=== PATIENT | male | born 1935 | race Caucasian/White ===

== ENCOUNTER → 2017-10-17 10:58 | Outpatient (CLI) | payer MEDICARE, BC, SELFPAY ==
[2017-10-17 14:09] LABS: Absolute Lymphocyte Count 1.61 X10^3/ul (0.83-4.51); Absolute Neutrophil Count 4.4 X10^3/uL (2.0-7.7); Basophil# 0.04 X10^3/uL; Basophil% 0.5 % (0-1); Eosinophil# 0.57 X10^3/uL; Eosinophils% 7.6 % (0-5); Hematocrit 43.5 % (40-54); Hemoglobin 14.4 g/dl (13.0-16.5); Lymphocyte # 1.61 X10^3/ul (4.0); Lymphocyte % 21.6 % (19-41); Mean Corp Hgb Conc 33.1 g/gl (32-36); Mean Corpuscular Hgb 30.4 pg (27.0-32.0); Mean Corpuscular Volume 91.8 fL (80-94); Mean Platelet Vol. 10.1 fl (6.2-12.0); Monocyte# 0.86 X10^3/uL; Monocyte% 11.5 % (0-10); Neutrophil # 4.36 X10^3/uL (2.7-7.7); Neutrophil % 58.5 % (47-70); Platelet Count 186 K/mm3 (150-450); RBC Distribution Width CV 15.5 % (11.6-14.6); RBC Distribution Width SD 50.7 fl (35.1-43.9); Red Blood Count 4.74 M/mm3 (4.6-6.2); White Blood Count 7.5 K/mm3 (4.4-11.0)
[2017-10-17 14:10] LABS: POSITIVE COUNT NO; POSITIVE DIFFERENTIAL NO; POSITIVE MORPHOLOGY NO
[2017-10-17 14:21] LABS: Anion Gap 9 (5-15); BUN 25 mg/dL (7-18); BUN/Creat Ratio 19.2 RATIO (10-20); Calcium,Total 9.1 mg/dL (8.5-10.1); Chloride 109 mmol/L (98-107); Cholesterol 107 mg/dL (200); EST Glomerular Filtration Rate 56 mL/min (>60); Est Glom Filt Rate - Afr Amer 68 mL/min (>60); Glucose 78 mg/dL (74-106); High Density Lipoprotein 53 mg/dL; Potassium 3.8 mmol/L (3.5-5.1); Sodium Level 146 mmol/L (136-145); Triglycerides 46 mg/dL; Very Low Density Lipoprotein 9 mg/dL (5-40)
== END ==
PROVIDERS: Family Provider Family Medicine; PCP Family Medicine; Visit Provider Family Medicine
DX: I10 Essential (primary) hypertension (principal); I48.91 Unspecified atrial fibrillation; E78.00 Pure hypercholesterolemia, unspecified
CPT/HCPCS: 80048; 80061; 85025

== ENCOUNTER → 2018-03-29 10:00 | Outpatient (CLI) | payer MEDICARE, BC, SELFPAY ==
[2018-03-29 12:06] LABS: Absolute Neutrophil Count 4.2 X10^3/uL (2.0-7.7); Basophil# 0.04 X10^3/uL; Basophil% 0.6 % (0-1); Eosinophil# 0.46 X10^3/uL; Eosinophils% 6.6 % (0-5); Hemoglobin 13.6 g/dl (13.0-16.5); Lymphocyte % 20.2 % (19-41); Mean Corp Hgb Conc 33.2 g/gl (32-36); Mean Corpuscular Hgb 30.2 pg (27.0-32.0); Mean Corpuscular Volume 91.1 fL (80-94); Monocyte# 0.83 X10^3/uL; Neutrophil # 4.18 X10^3/uL (2.7-7.7); Neutrophil % 60.3 % (47-70); Platelet Count 172 K/mm3 (150-450); RBC Distribution Width CV 15.4 % (11.6-14.6); RBC Distribution Width SD 50.3 fl (35.1-43.9); White Blood Count 6.9 K/mm3 (4.4-11.0)
[2018-03-29 12:12] LABS: POSITIVE COUNT NO; POSITIVE DIFFERENTIAL NO; POSITIVE MORPHOLOGY NO
[2018-03-29 12:32] LABS: ALB/GLOB Ratio 1.2 RATIO (0.9-2.4); AST(SGOT) 26 U/L (15-37); Alanine Aminotransfer ALT/SGPT 35 U/L (16-61); Albumin, Serum 3.3 g/dL (3.2-5.0); Alkaline Phosphatase 111 U/L (45-117); Anion Gap 8 (5-15); BUN 20 mg/dL (7-18); BUN/Creat Ratio 14.3 RATIO (10-20); Calcium,Total 8.9 mg/dL (8.5-10.1); Chloride 111 mmol/L (98-107); EST Glomerular Filtration Rate 52 mL/min (>60); Est Glom Filt Rate - Afr Amer 62 mL/min (>60); Globulin 2.8 g/dL (2.2-4.2); Glucose 105 mg/dL (74-106); Potassium 3.8 mmol/L (3.5-5.1); Protein, Total 6.1 g/dL (6.4-8.2); Sodium Level 142 mmol/L (136-145); Thyroid Stim Hormone (TSH) 3.59 uIU/mL (0.358-3.74)
[2018-04-04 10:08] LABS: H. PYLORI STOOL AG Negative (Negative)
== END ==
PROVIDERS: Family Provider Family Medicine; PCP Family Medicine; Visit Provider Family Medicine
DX: R19.7 Diarrhea, unspecified (principal)
CPT/HCPCS: 36415; 80053; 84443; 85025; 87493; 87506

== ENCOUNTER → 2018-06-25 09:33 | Outpatient (CLI) | payer MEDICARE, BC, SELFPAY ==
[2018-06-21 14:18] VITALS: BMI 26.1
== END ==
PROVIDERS: Family Provider Family Medicine; PCP Family Medicine; Referring Provider Internal Medicine Cardiovascular Disease; Visit Provider Internal Medicine Cardiovascular Disease
DX: I48.0 Paroxysmal atrial fibrillation (principal); R00.1 Bradycardia, unspecified
CPT/HCPCS: 93225; 93226

== ENCOUNTER → 2018-10-23 | Outpatient (CLI) | payer MEDICARE, BC, SELFPAY ==
[2018-10-18 09:13] VITALS: BMI 26.1
[2018-10-23 13:17] LABS: AST(SGOT) 27 U/L (15-37); Alanine Aminotransfer ALT/SGPT 30 U/L (16-61); Albumin, Serum 3.5 g/dL (3.2-5.0); Alkaline Phosphatase 124 U/L (45-117); Anion Gap 8 (5-15); BUN 18 mg/dL (7-18); BUN/Creat Ratio 15.3 RATIO (10-20); Calcium,Total 8.9 mg/dL (8.5-10.1); Chloride 111 mmol/L (98-107); Cholesterol 105 mg/dL (200); Creatinine, Serum 1.18 mg/dL (0.70-1.30); EST Glomerular Filtration Rate 63 mL/min (>60); Est Glom Filt Rate - Afr Amer 76 mL/min (>60); Globulin 2.6 g/dL (2.2-4.2); Glucose 82 mg/dL (74-106); High Density Lipoprotein 57 mg/dL; Potassium 3.8 mmol/L (3.5-5.1); Protein, Total 6.1 g/dL (6.4-8.2); Sodium Level 145 mmol/L (136-145); Thyroid Stim Hormone (TSH) 4.38 uIU/mL (0.358-3.74); Triglycerides 56 mg/dL; Very Low Density Lipoprotein 11 mg/dL (5-40)
== END | disposition home or self-care (01) ==
LOC: LAB 11:34
PROVIDERS: Family Provider Family Medicine; PCP Family Medicine; Referring Provider Internal Medicine Cardiovascular Disease; Visit Provider Internal Medicine Cardiovascular Disease
DX: I10 Essential (primary) hypertension (principal); I48.0 Paroxysmal atrial fibrillation; E78.00 Pure hypercholesterolemia, unspecified
CPT/HCPCS: 36415; 80048; 80061; 80076; 84443

== ENCOUNTER → 2019-12-03 10:11 | Outpatient (CLI) | payer MEDICARE, BC, SELFPAY ==
[2019-10-23 15:02] VITALS: BMI 25.4
[2019-12-03 11:57] LABS: Anion Gap 4 (5-15); BUN 21 mg/dL (7-18); BUN/Creat Ratio 17.1 RATIO (10-20); Calcium,Total 9.3 mg/dL (8.5-10.1); Chloride 108 mmol/L (98-107); Creatinine, Serum 1.23 mg/dL (0.70-1.30); EST Glomerular Filtration Rate 60 mL/min (>60); Est Glom Filt Rate - Afr Amer 72 mL/min (>60); Glucose 86 mg/dL (74-106); Potassium 3.8 mmol/L (3.5-5.1); Sodium Level 141 mmol/L (136-145); Thyroid Stim Hormone (TSH) 6.36 uIU/mL (0.358-3.74)
== END ==
PROVIDERS: PCP Family Medicine; Referring Provider Internal Medicine Cardiovascular Disease; Visit Provider Internal Medicine Cardiovascular Disease
DX: I10 Essential (primary) hypertension (principal); I48.0 Paroxysmal atrial fibrillation; I47.2 Ventricular tachycardia
CPT/HCPCS: 36415; 80048; 84443

== ENCOUNTER 2020-01-02 12:52 | Emergency (ER) | payer MEDICARE, BC, SELFPAY ==
[2019-10-23 15:02] VITALS: BMI 25.4
[2020-01-02 12:53] VITALS: BP 161/64; PULSE 36; RESP 16; TEMP 36.6; O2SAT 97; BMI 25.0
--- NOTE | 2020-01-02 13:04 | EKG12_ITS ---
Test Reason : BERTIN Blood Pressure : / mmHG Vent. Rate : 079 BPM Atrial Rate : 079 BPM P-R Int : 000 ms QRS Dur : 102 ms QT Int : 440 ms P-R-T Axes : 000 -49 004 degrees QTc Int : 504 ms Normal sinus rhythm with ventricular bigeminy Left axis deviation Possible Anterior infarct , age undetermined Prolonged QT Abnormal ECG [place] Confirmed by AFIA BRENNAN ([id number]), brands editor CHAKA TELLES ([id number] on 01/09/2020 1:28:27 PM Referred By: Ric Flynn Confirmed By:AFIA BRENNAN
[2020-01-02 13:17] VITALS: BP 164/74; PULSE 60; RESP 16; O2SAT 98
--- NOTE | 2020-01-02 14:00 | ED.DCSUM_ITS ---
History of Present Illness Chief Complaint: Fall Informant: Patient, Family Onset: Yesterday Current Severity: Mild Maximum Severity: Mild Narrative: Left chest wall pain after striking sink and bathroom yesterday, The patient has history of irregular heartbeat he is currently on Eliquis he has been doing well at home he is not been ill he inadvertently was in bathroom stumbled struck his left chest against the kitchen sink yesterday, persistent pain to the left chest and presents for evaluation No fever no cough no abdominal pain no head neck chest chest otherwise or abdominal pain no back pain he has a able to do all of his daily activities today including dressing bathing etc. he was able to eat he had persistent chest pain came in for evaluation. 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 Denies: Palpitations Respiratory: Denies: Dyspnea, Cough, Dyspnea on exertion Gastrointestinal: Denies: Abdominal pain, Nausea, Vomiting, Diarrhea, Melena, Hematochezia Genitourinary: Denies: Dysuria, Hematuria, Frequency Musculoskeletal: Denies: Back pain, Extremity Pain Skin: Denies: Rash, Wounds Neurological: Denies: Headache, Weakness, Numbness Physical Exam Vital Signs/Narrative: Vital Signs Temp Pulse Resp BP Pulse Ox 01/02/20 13:17 60 16 164/74 H 98 01/02/20 12:53 98 F 36 L 16 161/64 H 97 General: Well nourished, Well developed, No Acute Distress Head: Normocephalic, Atraumatic Eyes: Perrl, EOMI ENT: Moist mucous membranes, No rhinorrhea Neck: Supple, Nontender Cardiovascular: Regular rhythm, No murmurs, Irregular, - - He has an irregularity to the heart rhythm basically his baseline for him he has PVCs sinus rhythm underlying he has had this longstanding he has no cardiovascular symptoms or complaints, palpation of the left chest wall reveals some discomfort level nipple line there is no subcu air or step-off, the abdomen soft nontender the head and the neck are nontender the back is nontender the pelvis upper lower extremities unremarkable if he stays still he has really no pain if I turn his torso remove him by bending at the waist he has some discomfort in the upper chest area Respiratory: No distress, CTA bilaterally, Chest nontender Abdomen: Soft, Nontender, Nondistended, Normal bowel sounds Back: Nontender, Normal Inspection Extremities: Nontender, No edema Skin: Normal color, No rash Neurological: Alert, Oriented x3, Cranial nerves II-XII grossly intact, Normal Strength, Normal Sensation Psychological: Normal affect, Normal Mood Diagnostic/Tx/Re-eval - Medical Decision Making Given all the above the differential is extensive this appears to be restricted to the left chest wall he has no complications related to the use of the anticoagulant no abdominal pain he is eating and drinking bowel bladder habits are normal no back pain no neurologic issues, This time pain management chest x-ray The patient's chest x-ray per radiology shows nothing acute see that report, he is feeling better after the [place] he is comfortable discharge home as is the granddaughter I explained the concept of an occult rib fracture will be discharged on [place] to use sparingly as a rescue medicine if Tylenol is not effective ice to the area and a follow-up with his outpatient providers and return for change in symptoms Home stable Final impression left chest wall pain after trauma possible occult rib fracture ED Disposition - Plan for ED Patient: Diagnosis: Rib fracture Instructions: ED Rib Fx Prescriptions: Hydrocodone Bitart/Apap 5-325 [[place] 5MG-325MG] 1 tab PO Q4H PRN PRN 2 Days #10 tab PRN Reason: Pain Prescription Printed Referrals: Ric Grady MD [Primary Care Provider] -
--- NOTE | 2020-01-02 14:01 | RAD_ITS ---
STUDY: X-RAY CHEST REASON FOR EXAM: Male, 84 years old. FALL LAST NIGHT, LEFT LOWER AXILLARY RIB PAIN RADIATING TO ANTERIOR RIBS TECHNIQUE: PA and lateral views of the chest. COMPARISON: 06/13/2017 FINDINGS: EKG leads overlie the chest The lungs are clear and expanded. There is no demonstrated pleural abnormality. Normal size heart. Normal mediastinum and gato. Normal visualized pulmonary arteries. Normal visualized aortic arch and descending thoracic aorta. Normal visualized thoracic spine. Normal visualized ribs, clavicles, and shoulders. There is no demonstrated abnormality of the visualized soft tissue structures of the upper abdomen. RAD/Chest PA and Lateral IMPRESSION: No acute pulmonary process Electronically Signed: Jose Luis Hatfield MD at 14:19 EDT , Service support ,
[2020-01-02] MEDS: HYDROcodone Bitartrate/Apap 5/325 Tablet PO (14:13)
[2020-01-02 15:37] VITALS: BP 152/66; PULSE 63; RESP 16; O2SAT 95
== END 2020-01-02 15:39 | disposition home or self-care (01) ==
LOC: ED 13:49
PROVIDERS: Emergency Provider Emergency Medicine; PCP Family Medicine
DX: S22.32XA Fracture of one rib, left side, initial encounter for closed fracture (principal); Z87.891 Personal history of nicotine dependence; W18.40XA Slipping, tripping and stumbling without falling, unspecified, initial encounter; Y93.01 Activity, walking, marching and hiking; Y92.000 Kitchen of unspecified non-institutional (private) residence as the place of occurrence of the external cause; Y99.8 Other external cause status
CPT/HCPCS: 71046; 93005; 99283; A4216

== ENCOUNTER → 2020-01-08 | Outpatient (CLI) | payer MEDICARE, BC, SELFPAY ==
[2020-01-02 12:53] VITALS: BMI 25.0
--- NOTE | 2020-01-08 11:08 | RAD_ITS ---
STUDY: X-RAY - BILATERAL RIBS WITH CHEST REASON FOR EXAM: Male, 84 years old. PATIENT FELL ONE WEEK AGO. PAIN IN LEFT LOWER TO MID RIBS LATERALLY, RADIATING POSTERIORLY. TECHNIQUE - RIBS: 3 view(s) of the ribs. TECHNIQUE - CHEST: Single frontal view of the chest. COMPARISON: Chest 01/02/2020 FINDINGS - RIBS : Stable fractures of left ribs 8 and 9. FINDINGS - CHEST: The lungs are clear and expanded. There is no demonstrated pleural abnormality. Normal size heart. Normal mediastinum and gato. Normal visualized pulmonary arteries. Normal visualized aortic arch and descending thoracic aorta. Normal visualized thoracic spine. There is no demonstrated abnormality of the visualized soft tissue structures of the upper abdomen. RAD/Ribs Kam Min 4V w/PA Chest IMPRESSION: RIBS: Stable fractures of left ribs 8 and 9. CHEST: No acute pulmonary findings. Electronically Signed: Bhaskar He MD at 12:08 EDT Tel , Service support ,
== END | disposition home or self-care (01) ==
LOC: MTRAD 11:05
PROVIDERS: PCP Family Medicine; Referring Provider Family Medicine; Visit Provider Family Medicine
DX: R07.81 Pleurodynia (principal)
CPT/HCPCS: 71111

== ENCOUNTER → 2020-02-11 | Outpatient (CLI) | payer MEDICARE, BC, SELFPAY ==
[2020-02-11 18:20] LABS: Thyroid Stim Hormone (TSH) 4.17 uIU/mL (0.358-3.74)
== END | disposition home or self-care (01) ==
LOC: MFPLAB 15:29
PROVIDERS: PCP Family Medicine; Referring Provider Family Medicine; Visit Provider Family Medicine
DX: E03.9 Hypothyroidism, unspecified (principal)
CPT/HCPCS: 36415; 84443

== ENCOUNTER → 2020-06-12 10:32 | Outpatient (CLI) | payer MEDICARE, BC, SELFPAY ==
[2020-06-12 13:09] LABS: ALB/GLOB Ratio 1.2 RATIO (0.9-2.4); AST(SGOT) 28 U/L (15-37); Alanine Aminotransfer ALT/SGPT 32 U/L (16-61); Albumin, Serum 3.5 g/dL (3.2-5.0); Alkaline Phosphatase 139 U/L (45-117); Anion Gap 5 (5-15); BUN 23 mg/dL (7-18); BUN/Creat Ratio 18.3 RATIO (10-20); Calcium,Total 9.3 mg/dL (8.5-10.1); Chloride 112 mmol/L (98-107); Cholesterol 106 mg/dL (200); Creatinine, Serum 1.26 mg/dL (0.70-1.30); EST Glomerular Filtration Rate 58 mL/min (>60); Est Glom Filt Rate - Afr Amer 70 mL/min (>60); Globulin 2.8 g/dL (2.2-4.2); Glucose 83 mg/dL (74-106); High Density Lipoprotein 65 mg/dL; Potassium 3.8 mmol/L (3.5-5.1); Protein, Total 6.3 g/dL (6.4-8.2); Sodium Level 143 mmol/L (136-145); Thyroid Stim Hormone (TSH) 3.98 uIU/mL (0.358-3.74); Triglycerides 52 mg/dL; Very Low Density Lipoprotein 10 mg/dL (5-40)
== END ==
PROVIDERS: PCP Family Medicine; Referring Provider Family Medicine; Visit Provider Family Medicine
DX: E03.9 Hypothyroidism, unspecified (principal); I10 Essential (primary) hypertension
CPT/HCPCS: 36415; 80053; 80061; 84443

== ENCOUNTER → 2020-08-28 14:01 | Outpatient (CLI) | payer MEDICARE, BC, SELFPAY ==
[2020-06-23 15:12] VITALS: BMI 25.4
[2020-08-27 15:11] LABS: Absolute Lymphocyte Count 1.16 X10^3/uL (0.83-4.51); Absolute Neutrophil Count 5.9 X10^3/uL (2.0-7.7); Basophil# 0.05 X10^3/uL; Basophil% 0.6 % (0-1); Eosinophil# 0.11 X10^3/uL; Eosinophils% 1.3 % (0-5); Hematocrit 43.8 % (40-54); Hemoglobin 13.9 g/dL (13.0-16.5); Lymphocyte # 1.16 X10^3/ul (4.0); Lymphocyte % 14.1 % (19-41); Mean Corp Hgb Conc 31.7 g/dL (32-36); Mean Corpuscular Hgb 29.6 pg (27.0-32.0); Mean Corpuscular Volume 93.4 fL (80-94); Mean Platelet Vol. 9.8 fl (6.2-12.0); Monocyte# 0.95 X10^3/uL; Monocyte% 11.5 % (0-10); NRBC Flagged by Analyzer 0 % (0-5); Neutrophil # 5.93 X10^3/uL (2.7-7.7); Neutrophil % 72.1 % (47-70); Platelet Count 171 K/mm3 (150-450); RBC Distribution Width CV 15.8 % (11.6-14.6); RBC Distribution Width SD 53.5 fl (35.1-43.9); Red Blood Count 4.69 M/mm3 (4.6-6.2); White Blood Count 8.2 K/mm3 (4.4-11.0)
[2020-08-27 15:49] LABS: ALB/GLOB Ratio 1.5 RATIO (0.9-2.4); AST(SGOT) 27 U/L (15-37); Alanine Aminotransfer ALT/SGPT 36 U/L (16-61); Albumin, Serum 3.7 g/dL (3.2-5.0); Alkaline Phosphatase 132 U/L (45-117); Anion Gap 7 (5-15); BUN 23 mg/dL (7-18); BUN/Creat Ratio 16.2 RATIO (10-20); Calcium,Total 9.4 mg/dL (8.5-10.1); Chloride 109 mmol/L (98-107); Creatinine, Serum 1.42 mg/dL (0.70-1.30); EST Glomerular Filtration Rate 50 mL/min (>60); Est Glom Filt Rate - Afr Amer 61 mL/min (>60); Globulin 2.5 g/dL (2.2-4.2); Glucose 79 mg/dL (74-106); Potassium 3.7 mmol/L (3.5-5.1); Protein, Total 6.2 g/dL (6.4-8.2); Sodium Level 143 mmol/L (136-145); Thyroid Stim Hormone (TSH) 2.88 uIU/mL (0.358-3.74)
== END ==
LOC: LAB.FUTURE 14:02 → MFPLAB 14:07
PROVIDERS: PCP Family Medicine; Referring Provider Family Medicine; Visit Provider Family Medicine
DX: R63.4 Abnormal weight loss (principal); R19.7 Diarrhea, unspecified
CPT/HCPCS: 36415; 80053; 84443; 85025

== ENCOUNTER → 2020-08-31 12:32 | Outpatient (CLI) | payer MEDICARE, BC, SELFPAY ==
[2020-06-23 15:12] VITALS: BMI 25.4
== END ==
PROVIDERS: PCP Family Medicine; Referring Provider Family Medicine; Visit Provider Family Medicine
DX: R19.7 Diarrhea, unspecified (principal)
CPT/HCPCS: 87177; 87209; 87493; 87506

== ENCOUNTER → 2020-11-24 14:30 | Outpatient (CLI) | payer MEDICARE, BC, SELFPAY ==
[2020-06-23 15:12] VITALS: BMI 25.4
--- NOTE | 2020-11-24 14:33 | RAD_ITS ---
STUDY: X-RAY CHEST REASON FOR EXAM: Male, 85 years old. Unexplained weight loss TECHNIQUE: 2 PA and lateral views of the chest. COMPARISON: 01/08/2020 FINDINGS: Lungs are mildly hyperexpanded with chronic interstitial changes, but no superimposed acute pulmonary process. There is no demonstrated pleural abnormality. Normal size heart. Normal mediastinum and gato. Normal visualized pulmonary arteries. Normal visualized aortic arch and descending thoracic aorta. There are diffuse degenerative changes of the visualized thoracic spine. There is degenerative osteoarthritis of the bilateral shoulders. There is no demonstrated abnormality of the visualized soft tissue structures of the upper abdomen. RAD/Chest PA and Lateral IMPRESSION: Mildly hyperexpanded lungs with chronic interstitial changes, no superimposed acute pulmonary process. Electronically Signed: Jose Luis Hatfield MD at 15:50 EDT , Service support ,
[2020-11-24 17:32] LABS: Absolute Lymphocyte Count 1.48 X10^3/uL (0.83-4.51); Absolute Neutrophil Count 4.3 X10^3/uL (2.0-7.7); Basophil# 0.04 X10^3/uL; Basophil% 0.6 % (0-1); Eosinophil# 0.18 X10^3/uL; Eosinophils% 2.7 % (0-5); Hematocrit 41.6 % (40-54); Hemoglobin 13.3 g/dL (13.0-16.5); Lymphocyte # 1.48 X10^3/ul (0.83-4.51); Lymphocyte % 22.1 % (19-41); Mean Corpuscular Hgb 29.8 pg (27.0-32.0); Mean Corpuscular Volume 93.1 fL (80-94); Mean Platelet Vol. 9.5 fl (6.2-12.0); Monocyte# 0.67 X10^3/uL; NRBC Flagged by Analyzer 0 % (0-5); Neutrophil % 64.3 % (47-70); Platelet Count 198 K/mm3 (150-450); RBC Distribution Width CV 15.6 % (11.6-14.6); RBC Distribution Width SD 52.9 fl (35.1-43.9); Red Blood Count 4.47 M/mm3 (4.6-6.2); White Blood Count 6.7 K/mm3 (4.4-11.0)
[2020-11-24 19:11] LABS: ALB/GLOB Ratio 1.2 RATIO (0.9-2.4); AST(SGOT) 31 U/L (15-37); Alanine Aminotransfer ALT/SGPT 39 U/L (16-61); Albumin, Serum 3.5 g/dL (3.2-5.0); Alkaline Phosphatase 128 U/L (45-117); Anion Gap 8 (5-15); BUN 23 mg/dL (7-18); BUN/Creat Ratio 18.9 RATIO (10-20); Calcium,Total 9.3 mg/dL (8.5-10.1); Chloride 105 mmol/L (98-107); Cholesterol 117 mg/dL (200); Creatinine, Serum 1.22 mg/dL (0.70-1.30); EST Glomerular Filtration Rate 60 mL/min (>60); Est Glom Filt Rate - Afr Amer 73 mL/min (>60); Globulin 2.9 g/dL (2.2-4.2); Glucose 81 mg/dL (74-106); High Density Lipoprotein 74 mg/dL; Potassium 3.8 mmol/L (3.5-5.1); Protein, Total 6.4 g/dL (6.4-8.2); Sodium Level 139 mmol/L (136-145); Triglycerides 61 mg/dL; Very Low Density Lipoprotein 12 mg/dL (5-40)
[2020-11-26 14:32] LABS: Thyroid Stim Hormone (TSH) 3.94 uIU/mL (0.358-3.74)
[2020-11-26 16:09] LABS: Endomysial Antibody IgA Negative (Negative)
[2020-11-26 16:51] LABS: Deamidated Gliadin IgA 6 units (0-19); Deamidated Gliadin IgG 2 units (0-19); Immunoglobulin A 213 mg/dL (61-437); t-Transglutaminase IgA <2 U/mL (0-3)
[2020-11-29 14:07] LABS: Beef <0.10 kU/L (Class 0); Corn <0.10 kU/L (Class 0); Egg, Whole <0.10 kU/L (Class 0); Milk (Cow) <0.10 kU/L (Class 0); Peanut <0.10 kU/L (Class 0); Pork <0.10 kU/L (Class 0); Soybean <0.10 kU/L (Class 0); Wheat <0.10 kU/L (Class 0)
[2020-11-30 07:42] LABS: Chocolate <0.10 kU/L (Class 0)
== END ==
PROVIDERS: PCP Family Medicine; Referring Provider Family Medicine; Visit Provider Family Medicine
DX: K52.9 Noninfective gastroenteritis and colitis, unspecified (principal); I12.9 Hypertensive chronic kidney disease with stage 1 through stage 4 chronic kidney disease, or unspecified chronic kidney disease; N18.30 Chronic kidney disease, stage 3 unspecified; R63.4 Abnormal weight loss
CPT/HCPCS: 36415; 71046; 80053; 80061; 82784; 83516; 84443; 85025; 86003; 86005; 86255